=== PATIENT | male | born 1955 | race Caucasian/White ===

== ENCOUNTER 2018-05-15 06:27 | Day surgery (SDC) | payer MEDICARE ==
[~2018-05-15 06:27] MED LIST: ACETAMINOPHEN 1,000 MG/100 ML BTL IV ONE; CEFAZOLIN 2 Gram 2 GM/50 ML BAG IVPB ONE
[2018-05-15] MEDS ORDERED: ROCURONIUM BROMIDE 50MG/5ML VIAL IV ONE (06:28)
[2018-05-15] MEDS ORDERED: SEVOFLURANE 250 ML INH ONE (06:28)
[2018-05-15] MEDS ORDERED: MIDAZOLAM HCL 2MG/2ML VIAL IV ONE (06:28)
[2018-05-15] MEDS ORDERED: LIDOCAINE 2% MDV (20MG/ML) 20ML VIAL IV ONE (06:28)
[2018-05-15] MEDS ORDERED: ROPIVACAINE HCL (NAROPIN) /PF 5MG/ML 20ML VIAL IV ONE (06:28)
[2018-05-15] MEDS ORDERED: PROPOFOL 10 MG/ML VIAL IV ONE (06:28)
[2018-05-15] MEDS ORDERED: ONDANSETRON HCL IV 4 MG/2 ML VIAL IVP ONE (06:28)
[2018-05-15] MEDS ORDERED: DEXAMETHASONE 4 MG/ML 1ML VIAL IVP ONE (06:28)
[2018-05-15] MEDS ORDERED: BUPIVACAINE 0.25% W/EPI MPF 30ML VIAL IVP ONE (06:28)
[2018-05-15] MEDS ORDERED: FENTANYL PF 100MCG/2ML VIAL IV ONE (06:28)
[2018-05-15] MEDS ORDERED: HYDROCODONE/APAP 5/325MG TABLET PO ONE (06:28)
[2018-05-15] MEDS ORDERED: SUCCINYLCHOLINE 20 MG/ML 10ML IVP ONE (06:28)
[2018-05-15 06:46] LABS: BASO % 0.4 % (0-6); EOS % 1.1 % (0-6); GRAN % 70.2 % (47-80); HEMATOCRIT 48.1 % (42.0-52.0); HEMOGLOBIN 16.6 gm/dl (14.0-18.0); LYMPH % 22.8 % (16-45); MEAN CELL VOLUME 90.9 fl (81-97); MEAN CORPUSCULAR HEMOGLOBIN 31.4 pg (27-33); MEAN CORPUSCULAR HGB CONC 34.5 g/dl (32-36); MEAN PLATELET VOLUME 10.5 fl (7.4-10.4); MONO % 5.5 % (0-9); PLATELET COUNT 197 K/uL (130-400); RED BLOOD COUNT 5.29 M/uL (4.40-5.70); RED CELL DISTRIBUTION WIDTH 13.6 % (11.5-14.5); WHITE BLOOD COUNT W/O DIFF 10.2 K/uL (4.2-12.2)
[2018-05-15 07:00] LABS: BLOOD UREA NITROGEN 12 mg/dL (8-23); CREATININE 1.1 mg/dL (0.7-1.2); EST GLOMERULAR FILTRATION RATE > 60 mL/min; GLUCOSE,RANDOM 109 mg/dL (74-109)
--- NOTE | 2018-05-17 17:20 | Operative Note ---
DATE OF SURGERY: 05/15/2018 Surgeon: Eleazar Harrison DO PREOPERATIVE DIAGNOSIS: Reducible right inguinal hernia. POSTOPERATIVE DIAGNOSIS: Reducible right inguinal hernia, indirect. OPERATION: Open right inguinal herniorrhaphy with mesh. Indication: The patient is a 63-year-old male who presented with pain and bulging in his right inguinal region. We did discuss repair. Risks, benefits, and alternatives were discussed. Risks include bleeding, infection, acute or chronic pain, recurrence. He understood this fully. Consent was signed and questions answered. PROCEDURE: He was taken to the operating room and placed in a supine position. General anesthesia was administered per the department of anesthesia. The patient's right inguinal region was shaved of hair and prepped and draped in a sterile fashion. He had undergone a preoperative block per the department of anesthesia. Oblique region was anesthetized with a total of 8 mL of 0.25% Sensorcaine with epinephrine. A 4 cm oblique incision was made. This was carried down through the subcutaneous tissue through Gely layer to the aponeurosis of the external oblique. This was cleaned off. This was then incised in a direction with the fibers with care taken not to injure the the underlying ilioinguinal nerve or spermatic cord. Superior and inferior flaps were developed and a [place] was placed on the spermatic cord. This was dissected free from the underlying transversalis fascia and retracted laterally with a Jamarcus drain. Floor was inspected and noted to be free of any direct herniation. Cremasteric fibers were noted to be thickened due to the chronicity of the hernia. These were taken down. Indirect hernia sac as well as cord lipoma were identified. High ligations of each were done. At this time, a right-sided ProGrip mesh was obtained. This was placed in the floor of the inguinal canal with excellent overlap of the pubic tubercle. Sutures went to the level of pubic tubercle, the second portion of the inguinal ligament, and the internal oblique aponeurosis. The lateral triangle was protected with the lateral aspect of the mesh. At this time, the aponeurosis was closed over the cord with 2-0 Vicryl, the Gely layer was closed with 3-0 Vicryl, and skin was closed with 4-0 Vicryl. Tolerated the procedure well. CC: DO DEAN Hanley
== END 2018-05-15 10:45 | disposition home or self-care (01) ==
LOC: SUR 06:27
PROVIDERS: ATTEND Surgery
DX: K40.90 Unilateral inguinal hernia, without obstruction or gangrene, not specified as recurrent (principal); E78.00 Pure hypercholesterolemia, unspecified; M79.7 Fibromyalgia
CPT/HCPCS: 49505; 00830; 64425; 85025; 80048; J2405; J3010; J0690; J2795; 76942; J0330

== ENCOUNTER 2018-10-17 06:43 | Day surgery (SDC) | payer MEDICARE ==
[2018-10-17] MEDS ORDERED: PROPOFOL 10 MG/ML VIAL IV ONE (06:44)
[2018-10-17] MEDS ORDERED: ONDANSETRON HCL IV 4 MG/2 ML VIAL IVP ONE (06:44)
[2018-10-17] MEDS ORDERED: DEXAMETHASONE 4 MG/ML 1ML VIAL IVP ONE ×2 (06:44)
[2018-10-17] MEDS ORDERED: ROCURONIUM BROMIDE 50MG/5ML VIAL IV ONE (06:44)
[2018-10-17] MEDS ORDERED: BUPIVACAINE LIPOSOME/PF 133MG/10ML VIAL IV ONE (06:44)
[2018-10-17] MEDS ORDERED: MIDAZOLAM HCL 2MG/2ML VIAL IV ONE (06:44)
[2018-10-17] MEDS ORDERED: BUPIVACAINE 0.25% MPF 30ML VIAL IVP ONE (06:44)
[2018-10-17] MEDS ORDERED: SEVOFLURANE 250 ML INH ONE (06:44)
[2018-10-17] MEDS ORDERED: EPINEPHRINE 1 MG/ML AMPUL SQ ONE (06:44)
[2018-10-17] MEDS ORDERED: LIDOCAINE 2% MDV (20MG/ML) 20ML VIAL IV ONE (06:44)
[2018-10-17] MEDS ORDERED: FENTANYL PF 100MCG/2ML VIAL IV ONE (06:44)
--- NOTE | 2018-10-18 08:50 | Operative Note ---
DATE OF SURGERY: 10/17/2018 Surgeon: Matt Arellano DO PREOPERATIVE DIAGNOSES: 1. Tear of the right rotator cuff. 2. Impingement syndrome, right shoulder. 3. Tear of the anterosuperior glenoid labrum. POSTOPERATIVE DIAGNOSES: 1. Tear of the right rotator cuff. 2. Impingement syndrome, right shoulder. 3. Tear of the anterosuperior glenoid labrum. OPERATION: 1. Arthroscopic repair of right rotator cuff. 2. Arthroscopic subacromial decompression and acromioplasty, right shoulder. 3. Arthroscopic debridement of the anterosuperior labrum, right shoulder. DESCRIPTION OF PROCEDURE: This 63-year-old male was taken to the operating room and placed in the supine position on the operating room table. General anesthetic was administered. He was placed in the beach chair position with all bony prominences well padded and the head well secured. The right shoulder was prepped with Hibiclens and draped in the usual sterile fashion. A posterior portal was established in the glenohumeral joint, and initial evaluation of the joint demonstrated a full-thickness tear of the supraspinatus tendon. The biceps tendon appeared to be normal. There was minimal tearing of the superior aspect of the subscapularis but it was not unstable. We probed through an anterior portal, and the probing of the anterior labrum revealed that this patient actually had a [place] type lesion and fraying of the leading edge of the labrum superiorly under the biceps anchor was noted. This was debrided with a rotating shaver. We did not actually see any bony detachment of the labrum from the glenoid, and the [place] was not further disturbed. We then placed the scope in the subacromial space, and thorough subacromial decompression and acromioplasty were performed. We debrided the tear in the supraspinatus tendon from the bursal surface and debrided the tuberosity to healthy appearing bone. Rotating shaver was used to further remove and debride soft tissue from the bone. This U-shaped tear was then repaired utilizing an Arthrex SpeedBridge technique. The patient had a reasonable quality of rotator cuff remaining. This was repaired in typical fashion with four 4.75 SwiveLock anchors; 2 were placed adjacent to the articular cartilage, 1 at the anterior and 1 at the posterior margins of the tear, 1 with a FiberTape and the second with a TigerTape. These sutures were then shuttled through the rotator cuff, and a single limb of each one of these sutures was then grasped and placed through a 3rd SwiveLock anchor which was placed inferior to the anterior anchor. Traction was placed on the sutures to bring the cuff down to its anatomic position on the tuberosity, and the anchor was then secured in the bone. The sutures were cut. The remaining 2 tails of suture were then placed through a 4th SwiveLock anchor which was placed inferior to the posterior anchor and again, traction placed on the sutures to bring the cuff down posteriorly. It was seen to be satisfactory and the anchor was impaled. Sutures were cut. The repair appeared to be satisfactory. The wound was irrigated and it was suctioned and the portals were closed with 4-0 nylon suture. An UltraSling was applied after sterile dressings had been applied. The patient was taken to the recovery room in satisfactory condition. GROSS PATHOLOGY: This patient demonstrated disruption of the supraspinatus tendon as well as partial tearing and fraying of the anterosuperior labrum. A [place] lesion was identified. Minimal separation of the subscapularis was identified. CC: DO DEAN Hanley
== END 2018-10-17 11:10 | disposition home or self-care (01) ==
LOC: SUR 06:43
PROVIDERS: ATTEND Orthopaedic Surgery
DX: M75.101 Unspecified rotator cuff tear or rupture of right shoulder, not specified as traumatic (principal); S43.431A Superior glenoid labrum lesion of right shoulder, initial encounter; M75.41 Impingement syndrome of right shoulder; I10 Essential (primary) hypertension; E78.00 Pure hypercholesterolemia, unspecified; K21.9 Gastro-esophageal reflux disease without esophagitis; F17.290 Nicotine dependence, other tobacco product, uncomplicated
CPT/HCPCS: 29827; 29826; 29822; 01630; 64415; J2405; J3010; C9290; 76942; J0171